=== PATIENT | female | born 1965 | race Caucasian/White ===

== ENCOUNTER → 2017-09-29 | Outpatient (CLI) | payer MEDICAID ==
--- NOTE | 2017-10-02 09:32 | BD ---
EXAMINATION TYPE: MG DEXA axial skeleton. DATE OF EXAM: 09/29/2017 COMPARISON: NONE CLINICAL HISTORY: Screening for osteoporosis. Postmenopausal female. Height: 66 Weight: 287.1 FRAX RISK QUESTIONS: Alcohol (3 or more units per day): no Family History (Parent hip fracture): no Glucocorticoids (More than 3mos): no (Ex: prednisone, prednisolone, methylprednisolone, dexamethasone, and hydrocortisone). History of Fracture in Adulthood: no Secondary Osteoporosis: 1. Type 1 Diabetes: no 2. Hyperthyroidism: no 3. Menopause before 45: yes 4. Malnutrition: no 5. Chronic liver disease: no Rheumatoid Arthritis: no Current Tobacco Use: no RISK FACTORS HISTORY OF: Hip Fracture (Right/Left): no Spine Fracture: no History of Wrist Fracture: no Surgery to Spine/Hip(right/left)/Wrist (right/left): bilateral carpal tunnel surg Family History of Osteoporosis: no Active: no Diet low in dairy products/other sources of calcium: yes Postmenopausal woman: hysterectomy 2006 Lost more than 2 inches in height since high school: no Frequent falls: no Poor Health: no Hyperparathyroidism: no Adrenal Insufficiency: no MEDICATIONS: high bp med, metformin, zocor, wellbutrin, baby aspirin Additional History: EXAM MEASUREMENTS: Bone mineral densitometry was performed using the [employer] System. Bone mineral density as measured about the Lumbar spine is: ----- L1-L4(G/cm2): 1.153 T Score Values are as follows: ----- L2: -0.3 ----- L3: -1.0 ----- L4: 0.1 ----- L1-L4: -0.2 Bone mineral density baseline Bone mineral density about the R hip (g/cm2): 1.003 Bone mineral density about the L hip (g/cm2): 0.951 T Score values are as follows: -----R Neck: -0.3 -----L Neck: -0.6 -----R Total: 0.0 -----L Total: 0.0 Bone mineral density baseline IMPRESSION: Normal (Values between +1 and -1 indicate normal bone mass). Consider repeating this study in 5 year s or sooner if there is some new clinical indication. NOTE: T-SCORE=SD OF THE YOUNG ADULT MEAN.
--- NOTE | 2017-10-02 11:51 | MM ---
Reason for exam: screening (asymptomatic). Last mammogram was performed 1 year and 3 months ago. History: Patient is postmenopausal. Took hormonal contraceptives for 2 years beginning at age 18. Physical Findings: A clinical breast exam by your physician is recommended on an annual basis and results should be correlated with mammographic findings. MG 3D Screening Mammo W/Cad Bilateral CC and MLO view(s) were taken. Prior study comparison: July 11, 2016, mammogram, performed at [place]. June 29, 2015, mammogram, performed at [place]. There are scattered fibroglandular densities. No suspicious abnormality. No significant changes when compared with prior studies. ASSESSMENT: Negative, BI-RAD 1 RECOMMENDATION: Routine screening mammogram of both breasts in 1 year.
== END | disposition home or self-care (01) ==
LOC: RADMAMWWP 15:43
PROVIDERS: ATTEND Internal Medicine Geriatric Medicine
DX: Z12.31 Encounter for screening mammogram for malignant neoplasm of breast (principal); M81.0 Age-related osteoporosis without current pathological fracture
CPT/HCPCS: 77063; 77067; 77080

== ENCOUNTER → 2017-10-30 | Outpatient (CLI) | payer MEDICAID ==
[2017-10-30 14:55] VITALS: RESP 15; TEMP 98.3; BMI 46.4
--- NOTE | 2017-10-30 15:38 | P.HPBAR ---
Bariatric H&P - History & Physicial H&P Date: 10/30/17 History & Physicial: Visit/CC: sleeve f/u (new patient moved from [place]) Patient initial contact: Initial weight: 180.076 kg Initial weight in pounds: 397.00 Height: 5 ft 6 in Initial BMI: 64.0 Last weight: Current weight: 130.499 kg Current weight in pounds: 287.70 Current BMI: 46.4 [place] body weight (based on NIH guidelines): 58.967 kg Excess body weight loss: 40.9% The patient is a 52 year-old F who presents for Bariatric Assessment. The patient presents today for bariatric follow-up. She underwent sleeve gastrectomy in 2012 in [facility]. The patient states she had some complaints of epigastric pain and some nausea. She lost approximately 100 pounds since her surgery. Past Medical History Past Medical History: Diabetes Mellitus, Hyperlipidemia, Hypertension, Sleep Apnea/CPAP/BIPAP Additional Past Medical History / Comment(s): Type 2 DM, Diverticulitis History of Any Multi-Drug Resistant Organisms: None Reported Past Surgical History: Bariatric Surgery, Hysterectomy, Orthopedic Surgery Additional Past Surgical History / Comment(s): Bilateral carpal tunnel, bilateral knee arthroscopy, Colonoscopy 2010 (benign polyps removed), Complete hysterectomy, bilateral ooperectomy, Vertical gastric sleeve 2012 Past Anesthesia/Blood Transfusion Reactions: No Reported Reaction Additional Past Anesthesia/Blood Transfusion Reaction / Comm: No hx of blood transfusions, sometimes in recovery a little longer d/t sleep apnea Past Psychological History: Anxiety, Depression Smoking Status: Never smoker Surgical - Exam Vital Signs Temp Resp 98.3 F 15 10/30/17 14:46 10/30/17 14:46 - General well developed, no distress - Eyes PERRL - ENT normal pinna - Neck no masses - Respiratory normal expansion - Cardiovascular Rhythm: regular - Abdomen Abdomen: soft, non tender Bariatric Assessment & Plan Plan: Status post sleeve yesterday. Patient will undergo EGD and esophagram. [facility] 1 [facility]. Bariatric Checklist Checklist: Plan: Checklist: EGD: 1. Hiatal hernia: 2. H. Pylori: HgbA1c: Vitamin D: Smoking: Never smoker Primary care physician referral: Jeff Psychiatry clearance: Cardiology clearance: Sleep study: Diet journal: VTE risk score: VTE risk level: Rehab needs at discharge:
[2017-10-30 16:54] VITALS: BP 193/104; PULSE 66
== END | disposition home or self-care (01) ==
LOC: BARWHC3 14:15
PROVIDERS: ATTEND Surgery
DX: Z09 Encounter for follow-up examination after completed treatment for conditions other than malignant neoplasm (principal); R10.13 Epigastric pain; R11.0 Nausea; E11.9 Type 2 diabetes mellitus without complications; E78.5 Hyperlipidemia, unspecified; I10 Essential (primary) hypertension; G47.33 Obstructive sleep apnea (adult) (pediatric); E66.9 Obesity, unspecified; F32.9 Major depressive disorder, single episode, unspecified; F41.9 Anxiety disorder, unspecified; K57.92 Diverticulitis of intestine, part unspecified, without perforation or abscess without bleeding; Z90.710 Acquired absence of both cervix and uterus; Z98.890 Other specified postprocedural states; Z68.42 Body mass index [BMI] 45.0-49.9, adult; Z99.89 Dependence on other enabling machines and devices; Z98.84 Bariatric surgery status
CPT/HCPCS: 99211

== ENCOUNTER → 2017-11-06 | Outpatient (CLI) | payer MEDICAID ==
--- NOTE | 2017-11-06 08:54 | FL ---
EXAMINATION: Cervical and Thoracic Esophagram DATE OF EXAM: 11/06/2017 CLINICAL INDICATION: 52-year-old female with history of sleeve gastrectomy in 2013 with epigastric pa in for one to 2 months. COMPARISON: None Total Fluoroscopy Time: 1 minute 42 seconds Clinical images: 35 FINDINGS: The swallowing mechanism is normal and hypopharyngeal anatomy is preserved. The cervical and thoracic portions have a normal course and caliber. The mucosa is normal and no pers istent filling defect is encountered. Secondary stripping waves are blunted with prolonged pooling of contrast in the esophagus with the pa tient is supine. Mild tertiary peristalsis is present with a few episodes of intraesophageal reflux. No hiatal hernia. Postsurgical changes of sleeve gastrectomy are noted. IMPRESSION: 1. Status post sleeve gastrectomy. 2. Blunted secondary stripping waves and mild tertiary peristalsis. This results in prolonged pooling of contrast in the esophagus especially when the patient is supine and intermittent intraesophageal reflux. 3. No hiatal hernia.
== END | disposition home or self-care (01) ==
LOC: RADFLWHC 07:56
PROVIDERS: ATTEND Surgery
DX: K21.9 Gastro-esophageal reflux disease without esophagitis (principal); Z98.84 Bariatric surgery status
CPT/HCPCS: 74220

== ENCOUNTER 2017-11-08 11:43 | Day surgery (SDC) | payer MEDICAID ==
[2017-11-06 09:26] VITALS: BMI 46.3
[~2017-11-08 11:43] MED LIST: LACTATED RINGERS 1,000 ML IV SCH
[2017-11-08 12:01] VITALS: RESP 18; TEMP 98
[2017-11-08] MEDS ORDERED: LACTATED RINGERS 1,000 ML IV ONE (12:01)
[2017-11-08] MEDS ORDERED: LIDOCAINE 1% 20 ML VIAL (10MG/ML) FOR IV START INTRADERMA ONE (12:11)
[2017-11-08 12:13] LABS: Glucose,Whole Blood 104 mg/dL (75-99)
[2017-11-08] MEDS ORDERED: PROPOFOL 10 MG/ML 20 ML VIAL IV ONE (12:42)
--- NOTE | 2017-11-08 12:43 | P.GSHP ---
History of Present Illness H&P Date: 11/08/17 Chief Complaint: GERD This a 52-year-old female who's had issues with GERD. Patient presents today for EGD. Past Medical History Past Medical History: Diabetes Mellitus, Hyperlipidemia, Hypertension, Sleep Apnea/CPAP/BIPAP Additional Past Medical History / Comment(s): Type 2 DM, Diverticulosis History of Any Multi-Drug Resistant Organisms: None Reported Past Surgical History: Bariatric Surgery, Hysterectomy, Orthopedic Surgery Additional Past Surgical History / Comment(s): Bilateral carpal tunnel, bilateral knee arthroscopy, Colonoscopy 2010 (benign polyps removed), Vertical gastric sleeve 2012 Past Anesthesia/Blood Transfusion Reactions: No Reported Reaction Additional Past Anesthesia/Blood Transfusion Reaction / Comment(s): No hx of blood transfusions, sometimes in recovery a little longer d/t sleep apnea Smoking Status: Former smoker - Past Family History Mother Family Medical History: Cancer Father Family Medical History: Deep Vein Thrombosis (DVT) Medications and Allergies Home Medications Medication Instructions Recorded Confirmed Type Aspirin [Adult Low Dose Aspirin EC] 81 mg PO HS 10/30/17 11/06/17 History Carvedilol [Coreg] 25 mg PO BID 10/30/17 11/06/17 History Enalapril [Vasotec] 20 mg PO BID 10/30/17 11/06/17 History Sertraline [Zoloft] 50 mg PO DAILY 10/30/17 11/06/17 History Simvastatin [Zocor] 20 mg PO HS 10/30/17 11/06/17 History amLODIPine [Norvasc] 5 mg PO DAILY 10/30/17 11/06/17 History buPROPion XL [Wellbutrin Xl] 150 mg PO DAILY 10/30/17 11/06/17 History metFORMIN HCL [Glucophage] 500 mg PO BID 10/30/17 11/06/17 History Allergies Allergy/AdvReac Type Severity Reaction Status Date / Time No Known Allergies Allergy Verified 11/06/17 09:21 Surgical - Exam Vital Signs Temp Pulse Resp BP Pulse Ox 98.0 F 80 18 160/89 98 11/08/17 12:00 11/08/17 12:00 11/08/17 12:00 11/08/17 12:00 11/08/17 12:00 - General well developed, no distress - Eyes PERRL - ENT normal pinna - Neck no masses - Respiratory normal expansion - Cardiovascular Rhythm: regular - Abdomen Abdomen: soft, non tender Results - Labs Abnormal Lab Results - Last 24 Hours (Table) 11/08/17 Range/Units 12:07 POC Glucose (mg/dL) 104 H (75-99) mg/dL Assessment and Plan Assessment: GERD. We'll perform EGD.
--- NOTE | 2017-11-08 13:00 | P.OP ---
Date of Procedure: 11/08/17 Preoperative Diagnosis: GERD Epigastric pain Postoperative Diagnosis: Gastric sleeve Mid gastric ulcer Procedure(s) Performed: EGD Anesthesia: MAC Surgeon: Rupert Velazco Pathology: other (Antrum, gastric ulcer) Condition: stable Disposition: PACU Description of Procedure: The patient's placed on the endoscopy table in the lateral position. She received IV sedation. The gastric was placed oropharynx and passed into the esophagus and into the stomach. Scope was placed through the pylorus into the first and second portion of the duodenum. There is known 70 ulceration ablation duodenum. The scope was then brought back the antrum this was mildly inflamed. A biopsies performed. The scope was brought back and the patient had a previous gastric sleeve. In the midportion sleeve there appeared to be a small punctate ulcer. There is evidence of a clot in the middle of the ulcer. The area around the ulcer was biopsied. I did not on his cause of the bleeding from biopsing the ulcer edge. The scope was withdrawn remainder stomach appeared normal. The GE junction was at 40 cm. The distal esophagus and proximal esophagus appeared normal. Scope was withdrawn for patient.
[2017-11-08 13:15] VITALS: BP 158/85; PULSE 62
== END 2017-11-08 13:41 | disposition home or self-care (01) ==
LOC: ORWHC2ENDO 11:43
PROVIDERS: ATTEND Surgery
DX: K29.50 Unspecified chronic gastritis without bleeding (principal); K25.9 Gastric ulcer, unspecified as acute or chronic, without hemorrhage or perforation; Z90.3 Acquired absence of stomach [part of]; Z98.84 Bariatric surgery status; E11.9 Type 2 diabetes mellitus without complications; E78.5 Hyperlipidemia, unspecified; I10 Essential (primary) hypertension; G47.33 Obstructive sleep apnea (adult) (pediatric); Z99.89 Dependence on other enabling machines and devices; Z79.84 Long term (current) use of oral hypoglycemic drugs; Z79.82 Long term (current) use of aspirin; Z79.899 Other long term (current) drug therapy; Z87.891 Personal history of nicotine dependence
CPT/HCPCS: 88305; 43239; J2704

== ENCOUNTER → 2017-11-27 | Outpatient (CLI) | payer MEDICAID ==
[2017-11-27 14:42] VITALS: BP 182/90; PULSE 63; RESP 16; TEMP 97.8; BMI 47.0
--- NOTE | 2017-11-27 15:11 | P.HPBAR ---
Bariatric H&P - History & Physicial H&P Date: 11/27/17 History & Physicial: Visit/CC: EGD follow-up Patient initial contact: Initial weight: 180.076 kg Initial weight in pounds: 397.00 Height: 5 ft 6 in Initial BMI: 64.0 Last weight: Current weight: 132.194 kg Current weight in pounds: 291.44 Current BMI: 47.0 [place] body weight (based on NIH guidelines): 58.967 kg Excess body weight loss: 39.5% The patient is a 52 year-old F who presents for Bariatric Assessment. Patient presents today for sleeve gastric fall. She underwent recent EGD is found to have a mid sleeve gastric ulcer. She states she feels better with omeprazole. Past Medical History Past Medical History: Diabetes Mellitus, Hyperlipidemia, Hypertension, Sleep Apnea/CPAP/BIPAP Additional Past Medical History / Comment(s): Type 2 DM, Diverticulitis History of Any Multi-Drug Resistant Organisms: None Reported Past Surgical History: Bariatric Surgery, Hysterectomy, Orthopedic Surgery Additional Past Surgical History / Comment(s): Bilateral carpal tunnel, bilateral knee arthroscopy, Colonoscopy 2010 (benign polyps removed), Complete hysterectomy, bilateral ooperectomy, Vertical gastric sleeve 2012 Past Anesthesia/Blood Transfusion Reactions: No Reported Reaction Additional Past Anesthesia/Blood Transfusion Reaction / Comm: No hx of blood transfusions, sometimes in recovery a little longer d/t sleep apnea Past Psychological History: Anxiety, Depression Smoking Status: Never smoker Surgical - Exam Vital Signs Temp Pulse Resp BP 97.8 F 63 16 182/90 11/27/17 14:39 11/27/17 14:39 11/27/17 14:39 11/27/17 14:39 - General well developed, no distress - Eyes PERRL - ENT normal pinna - Neck no masses - Respiratory normal expansion - Cardiovascular Rhythm: regular - Abdomen Abdomen: soft, non tender Bariatric Assessment & Plan Plan: Status post sleeve yesterday. Patient recently diagnosed with a gastric ulcer. She'll continue omeprazole and Carafate. She'll follow-up in 4 weeks. Bariatric Checklist Checklist: Plan: Checklist: EGD: 1. Hiatal hernia: 2. H. Pylori: HgbA1c: Vitamin D: Smoking: Never smoker Primary care physician referral: Jeff Psychiatry clearance: Cardiology clearance: Sleep study: Diet journal: VTE risk score: VTE risk level: Rehab needs at discharge:
== END | disposition home or self-care (01) ==
LOC: BARWHC3 14:27
PROVIDERS: ATTEND Surgery
DX: Z48.815 Encounter for surgical aftercare following surgery on the digestive system (principal); K25.9 Gastric ulcer, unspecified as acute or chronic, without hemorrhage or perforation; E11.9 Type 2 diabetes mellitus without complications; E78.5 Hyperlipidemia, unspecified; I10 Essential (primary) hypertension; F41.9 Anxiety disorder, unspecified; F32.9 Major depressive disorder, single episode, unspecified; G47.30 Sleep apnea, unspecified; Z99.89 Dependence on other enabling machines and devices; Z98.84 Bariatric surgery status; Z98.890 Other specified postprocedural states
CPT/HCPCS: 99211

== ENCOUNTER → 2018-01-15 | Outpatient (CLI) | payer MEDICAID ==
[2018-01-15 15:49] VITALS: TEMP 98; BMI 47.9
[2018-01-15 15:54] VITALS: BP 175/89; PULSE 70; RESP 16
--- NOTE | 2018-01-26 13:08 | P.HPBAR ---
Bariatric H&P - History & Physicial H&P Date: 01/15/18 History & Physicial: Visit/CC: SLEEVE FOLLOW-UP Patient initial contact: Initial weight: 180.076 kg Initial weight in pounds: 397.00 Height: 5 ft 6 in Initial BMI: 64.0 Last weight: Current weight: 134.717 kg Current weight in pounds: 297.00 Current BMI: 47.9 [place] body weight (based on NIH guidelines): 58.967 kg Excess body weight loss: 37.4% The patient is a 52 year-old F who presents for Bariatric Assessment.the patient presents today for gastric sleeve follow-up. She has some mild complaints of GERD. She is still morbidly obese. Her BMI is 48. Past Medical History Past Medical History: Diabetes Mellitus, Hyperlipidemia, Hypertension, Sleep Apnea/CPAP/BIPAP Additional Past Medical History / Comment(s): Type 2 DM, Diverticulitis History of Any Multi-Drug Resistant Organisms: None Reported Past Surgical History: Bariatric Surgery, Hysterectomy, Orthopedic Surgery Additional Past Surgical History / Comment(s): Bilateral carpal tunnel, bilateral knee arthroscopy, Colonoscopy 2010 (benign polyps removed), Complete hysterectomy, bilateral ooperectomy, Vertical gastric sleeve 2012 Past Anesthesia/Blood Transfusion Reactions: No Reported Reaction Additional Past Anesthesia/Blood Transfusion Reaction / Comm: No hx of blood transfusions, sometimes in recovery a little longer d/t sleep apnea Past Psychological History: Anxiety, Depression Smoking Status: Never smoker Surgical - Exam Vital Signs Temp Pulse Resp BP 98.0 F 70 16 175/89 01/15/18 15:47 01/15/18 15:47 01/15/18 15:47 01/15/18 15:47 - General well developed, no distress - Abdomen Abdomen: soft, non tender Bariatric Assessment & Plan Plan: status post sleeve gastrectomy. Patient's will meet with the dietitian. Her GERD symptoms are minimal only observed. Bariatric Checklist Checklist: Plan: Checklist: EGD: 1. Hiatal hernia: 2. H. Pylori: HgbA1c: Vitamin D: Smoking: Never smoker Primary care physician referral: Jeff Psychiatry clearance: Cardiology clearance: Sleep study: Diet journal: VTE risk score: VTE risk level: Rehab needs at discharge:
== END | disposition home or self-care (01) ==
LOC: BARWHC3 15:33
PROVIDERS: ATTEND Surgery
DX: Z48.815 Encounter for surgical aftercare following surgery on the digestive system (principal); K21.9 Gastro-esophageal reflux disease without esophagitis; Z98.84 Bariatric surgery status
CPT/HCPCS: 99211

== ENCOUNTER → 2018-01-19 | Outpatient (CLI) | payer MEDICAID ==
[2018-01-19 11:04] VITALS: BMI 47.7
== END | disposition home or self-care (01) ==
LOC: MNTWWP 08:46
PROVIDERS: ATTEND Surgery
DX: E66.01 Morbid (severe) obesity due to excess calories (principal)
CPT/HCPCS: 97802

== ENCOUNTER → 2019-05-01 | Outpatient (CLI) | payer MEDICAID ==
[2019-05-01 14:39] VITALS: BP 167/107; PULSE 79; RESP 16; TEMP 98; BMI 51.1
--- NOTE | 2019-05-01 15:05 | P.HPBAR ---
Bariatric H&P - History & Physicial H&P Date: 05/01/19 History & Physicial: Visit/CC: sleeve follow-up Patient initial contact: Initial weight: 180.076 kg Initial weight in pounds: 397.00 Height: 5 ft 6 in Initial BMI: 64.0 Last weight: Current weight: 143.789 kg Current weight in pounds: 317.00 Current BMI: 51.1 [place] body weight (based on NIH guidelines): 58.967 kg Excess body weight loss: 29.9% The patient is a 53 year-old F who presents for Bariatric Assessment. HPI: She had her sleeve in [place], January 30, 2013. Highest weight was 401 pounds. Lowest 247 pounds. Now she comes in 317 pounds. She reports divorce and mother with brain cancer. She was on insuling and was off her medications after surgery. She was on Lasix for congestive heart failure and came off with her weight loss. She has sleep apnea. She was seeing Dr. Velazco and now is looking into the gastric bypass. She had an ulcer from her sleeve from a recent EGD and was not re-checked. He abdominal pain epigastric pain comes and goes. ABDOMEN: LABS: Reveiwed ASSESSMENT: 1. Morbid obesity PLAN: 1. Needs repeat EGD history ulcers 2. Repeat Labs 3. Follow up in 1 month Past Medical History Past Medical History: Diabetes Mellitus, Hyperlipidemia, Hypertension, Sleep Apnea/CPAP/BIPAP Additional Past Medical History / Comment(s): Type 2 DM, Diverticulitis History of Any Multi-Drug Resistant Organisms: None Reported Past Surgical History: Bariatric Surgery, Hysterectomy, Orthopedic Surgery Additional Past Surgical History / Comment(s): Bilateral carpal tunnel, bilateral knee arthroscopy, Colonoscopy 2010 (benign polyps removed), Complete hysterectomy, bilateral ooperectomy, Vertical gastric sleeve 2012 Past Anesthesia/Blood Transfusion Reactions: No Reported Reaction Additional Past Anesthesia/Blood Transfusion Reaction / Comm: No hx of blood transfusions, sometimes in recovery a little longer d/t sleep apnea Past Psychological History: Anxiety, Depression Smoking Status: Never smoker Surgical - Exam Vital Signs Temp Pulse Resp BP 98 F 79 16 167/107 05/01/19 14:34 05/01/19 14:34 05/01/19 14:34 05/01/19 14:34 Bariatric Checklist Checklist: Plan: Checklist: EGD: 1. Hiatal hernia: 2. H. Pylori: HgbA1c: Vitamin D: Smoking: Never smoker Primary care physician referral: Jeff Psychiatry clearance: Cardiology clearance: Sleep study: Diet journal: VTE risk score: VTE risk level: Rehab needs at discharge:
[2019-05-01 16:13] LABS: INR 0.9 (<1.2); Partial Thromboplastin Time 23.6 sec (22.0-30.0); Prothrombin Time 9.5 sec (9.0-12.0)
[2019-05-01 18:49] LABS: HGB 13.2 gm/dL (11.4-16.0); MCH 31.8 pg (25.0-35.0); MCHC 35.8 g/dL (31.0-37.0); MCV 88.8 fL (80.0-100.0); Mean Platelet Volume 6.8; Platelet Count 226 k/uL (150-450); RBC 4.16 m/uL (3.80-5.40); RDW 14.9 % (11.5-15.5); WBC 6.1 k/uL (3.8-10.6)
[2019-05-02 00:53] LABS: Iron Saturation 13.51 (12.00-45.00)
[2019-05-02 00:56] LABS: African American GFR (CKD) 96.9 (60.0-200.0); Albumin 4.4 g/dL (3.80-4.90); Albumin/Globulin Ratio 1.76 (1.60-3.17); Anion Gap 11.5 mmol/L (4.00-12.00); BUN/Creat Ratio 16.25 Ratio (12.00-20.00); Calcium 9.6 mg/dL (8.7-10.3); Carbon Dioxide 23.5 mmol/L (21.6-31.8); Globulin 2.5 g/dL (1.6-3.3); LDL Cholesterol,Calculated 80.2 mg/dL (0.0-131.0); Magnesium 1.8 mg/dL (1.5-2.4); Phosphorus 2.6 mg/dL (2.4-5.1); Potassium 4.4 mmol/L (3.5-5.5); Total Bilirubin 0.2 mg/dL (0.3-1.2); Total Protein 6.9 g/dL (6.2-8.2); VLDL Calculation 42.8 mg/dL (5.00-40.00)
[2019-05-02 01:02] LABS: Vitamin D 25 Hydroxy 22.3 ng/mL (30.0-100.0)
[2019-05-02 01:21] LABS: Hemoglobin A1C 7.1 % (4.0-6.0)
[2019-05-02 14:15] LABS: Zinc, Serum 70 ug/dL (60-130)
[2019-05-03 06:18] LABS: Vitamin A 60 ug/dL (38-106)
[2019-05-03 06:27] LABS: Vit B1(Thiamine) 73 ug/L (38-122)
== END ==
LOC: BARWHC3 14:15
PROVIDERS: ATTEND Surgery Plastic and Reconstructive Surgery
DX: E66.01 Morbid (severe) obesity due to excess calories (principal); E21.1 Secondary hyperparathyroidism, not elsewhere classified; E89.1 Postprocedural hypoinsulinemia; D50.9 Iron deficiency anemia, unspecified; E44.0 Moderate protein-calorie malnutrition; E55.9 Vitamin D deficiency, unspecified; K74.1 Hepatic sclerosis; N19 Unspecified kidney failure; K50.90 Crohn's disease, unspecified, without complications; Z98.84 Bariatric surgery status; Z68.43 Body mass index [BMI] 50.0-59.9, adult
CPT/HCPCS: 36415; 80053; 80061; 82306; 82525; 82607; 82728; 82746; 83036; 83540; 83550; 83735; 83970; 84100; 84134; 84255; 84425; 84443; 84590; 84630; 85027; 85610; 85730; 99211

== ENCOUNTER → 2019-05-22 | Outpatient (CLI) | payer MEDICAID ==
[2019-05-22 10:37] VITALS: BMI 51.6
== END | disposition home or self-care (01) ==
LOC: BARWHC3 08:51
PROVIDERS: ATTEND Surgery Plastic and Reconstructive Surgery
DX: E66.01 Morbid (severe) obesity due to excess calories (principal); Z68.43 Body mass index [BMI] 50.0-59.9, adult
CPT/HCPCS: 97803

== ENCOUNTER 2019-06-03 09:37 | Day surgery (SDC) | payer MEDICAID ==
[2019-05-30 16:04] VITALS: BMI 51.1
--- NOTE | 2019-06-02 22:55 | P.GSHP ---
History of Present Illness H&P Date: 06/03/19 CHIEF COMPLAINT: GERD HISTORY OF PRESENT ILLNESS: The patient is a 53-year-old female who presents reports gastroesophageal reflux disease. Upper endoscopy was offered for further evaluation and management. PAST MEDICAL HISTORY: Please see list. PAST SURGICAL HISTORY: Please see list. MEDICATIONS: Please see list. ALLERGIES: Please see list. SOCIAL HISTORY: No illicit drug use FAMILY HISTORY: No reports of Crohn disease or ulcerative colitis. REVIEW OF ORGAN SYSTEMS: CONSTITUTIONAL: No reports of fevers or chills. GI: Denies any blood in stools or constipation. PHYSICAL EXAM: VITAL SIGNS: Stable GENERAL: Well-developed and pleasant in no acute distress. HEENT: No scleral icterus. Extraocular movements grossly intact. Moist buccal mucosa. NECK: Supple without lymphadenopathy. CHEST: Unlabored respirations. Equal bilateral excursions. CARDIOVASCULAR: Regular rate and rhythm. Distal 2+ pulses. ABDOMEN: Soft, nondistended. MUSCULOSKELETAL: No clubbing, cyanosis, or edema. ASSESSMENT: 1. Gastroesophageal reflux disease PLAN: 1. Recommend proceeding with an upper endoscopy Past Medical History Past Medical History: Heart Failure, Diabetes Mellitus, Hyperlipidemia, Hypertension, Sleep Apnea/CPAP/BIPAP Additional Past Medical History / Comment(s): Type 2 DM, Diverticulitis. "Hx CHF when heavier." Hx stomach ulcer. Uses CPAP. History of Any Multi-Drug Resistant Organisms: None Reported Past Surgical History: Bariatric Surgery, Hysterectomy, Orthopedic Surgery Additional Past Surgical History / Comment(s): Bilateral carpal tunnel, bilat arthroscopy, Colonoscopy 2010 (benign polyps removed), Total Complete hysterectomy, Vertical gastric sleeve 2012. EGD Past Anesthesia/Blood Transfusion Reactions: Previous Problems w/ Anesthesia Additional Past Anesthesia/Blood Transfusion Reaction / Comment(s): No hx of blood transfusions, sometimes in recovery a little longer d/t sleep apnea Smoking Status: Former smoker - Past Family History Mother Family Medical History: Cancer Additional Family Medical History / Comment(s): Gleoblastoma Multiform 2015 Father Family Medical History: Deep Vein Thrombosis (DVT) Additional Family Medical History / Comment(s): AAA repair Medications and Allergies Home Medications Medication Instructions Recorded Confirmed Type Aspirin [Adult Low Dose Aspirin EC] 81 mg PO HS 10/30/17 05/30/19 History Carvedilol [Coreg] 25 mg PO BID 10/30/17 05/30/19 History Enalapril [Vasotec] 20 mg PO BID 10/30/17 05/30/19 History Sertraline [Zoloft] 25 mg PO Q48H 10/30/17 05/30/19 History Simvastatin [Zocor] 20 mg PO HS 10/30/17 05/30/19 History amLODIPine [Norvasc] 5 mg PO DAILY 10/30/17 05/30/19 History buPROPion XL [Wellbutrin Xl] 150 mg PO DAILY 10/30/17 05/30/19 History metFORMIN HCL [Glucophage] 1,000 mg PO BID 10/30/17 05/30/19 History Allergies Allergy/AdvReac Type Severity Reaction Status Date / Time No Known Allergies Allergy Verified 05/30/19 15:47
[2019-06-03 10:12] VITALS: TEMP 97.2
[2019-06-03 10:13] LABS: Glucose,Whole Blood 131 mg/dL (75-99)
[2019-06-03] MEDS ORDERED: LIDOCAINE 1% INJ 10MG/ML (20 ML MDV) ONE (13:33)
[2019-06-03] MEDS ORDERED: PROPOFOL 10 MG/ML 20 ML VIAL IV ONE (13:33)
--- NOTE | 2019-06-03 13:46 | P.PCN ---
Date of Procedure: 06/03/19 Description of Procedure: PREOPERATIVE DIAGNOSIS: Status post sleeve gastrectomy. History of gastric ulcers Epigastric abdominal pain. POSTOPERATIVE DIAGNOSIS: Status post sleeve gastrectomy. History of gastric ulcers Epigastric abdominal pain. Chronic superficial gastritis. OPERATION: Esophagogastroduodenoscopy with cold forceps biopsies along the antrum. SURGEON: Josette Pollard MD ANESTHESIA: MAC. INDICATIONS: The patient is a 53-year-old female who presents with a history of sleeve gastrectomy with gastric ulcers. Benefits and risks of the procedure were described. Informed consent was obtained. DESCRIPTION: The patient was brought into the endoscopy suite and laid in the left lateral decubitus position. An Olympus gastroscope was passed along the posterior oropharynx down to the distal esophagus where the squamocolumnar junction was at 40 centimeters from the incisors without erosive esophagitis. The stomach was entered where no hiatal hernia was identified. The sleeve reservoir narrowed at the angularis incisura. Chronic gastritis albeit mild was found along the antrum with cold biopsies obtained. The first through third portion of the duodenum was examined and unremarkable. The scope was retroflexed along the antrum. The stomach was desufflated. The patient tolerated the procedure well. FINDINGS: No acute ulceration found along her sleeve. Mild corkscrewing of sleeve gastrectomy. Encroachment along angularis incisura Adequate gastric reservoir with tapering along angularis incisura No LA grade A erosive esophagitis. No active duodenitis. Chronic gastritis. RECOMMENDATIONS: Upper endoscopy as needed. Plan - Discharge Summary Discharge Rx Participant: No New Discharge Prescriptions: No Action buPROPion XL [Wellbutrin Xl] 150 mg PO DAILY Sertraline [Zoloft] 25 mg PO Q48H metFORMIN HCL [Glucophage] 1,000 mg PO BID Aspirin [Adult Low Dose Aspirin EC] 81 mg PO HS Simvastatin [Zocor] 20 mg PO HS Carvedilol [Coreg] 25 mg PO BID amLODIPine [Norvasc] 5 mg PO DAILY Enalapril [Vasotec] 20 mg PO BID Discharge Medication List Aspirin [Adult Low Dose Aspirin EC] 81 mg PO HS 10/30/17 [History] Carvedilol [Coreg] 25 mg PO BID 10/30/17 [History] Enalapril [Vasotec] 20 mg PO BID 10/30/17 [History] Sertraline [Zoloft] 25 mg PO Q48H 10/30/17 [History] Simvastatin [Zocor] 20 mg PO HS 10/30/17 [History] amLODIPine [Norvasc] 5 mg PO DAILY 10/30/17 [History] buPROPion XL [Wellbutrin Xl] 150 mg PO DAILY 10/30/17 [History] metFORMIN HCL [Glucophage] 1,000 mg PO BID 10/30/17 [History] Follow up Appointment(s)/Referral(s): [facility] [NON-STAFF] - 06/19/19 Patient Instructions/Handouts: Gastritis (DC), Diet for Stomach Ulcers and Gastritis (ED) Discharge Disposition: HOME SELF-CARE
[2019-06-03 14:09] VITALS: BP 132/80; PULSE 63; RESP 20
== END 2019-06-03 14:25 | disposition home or self-care (01) ==
LOC: ORWHC2ENDO 09:37
PROVIDERS: ATTEND Surgery Plastic and Reconstructive Surgery
DX: K29.30 Chronic superficial gastritis without bleeding (principal); Z98.84 Bariatric surgery status; Z87.11 Personal history of peptic ulcer disease; Z79.84 Long term (current) use of oral hypoglycemic drugs; Z79.82 Long term (current) use of aspirin; E11.9 Type 2 diabetes mellitus without complications; E78.5 Hyperlipidemia, unspecified; Z99.89 Dependence on other enabling machines and devices; Z87.891 Personal history of nicotine dependence; Z79.899 Other long term (current) drug therapy; E66.01 Morbid (severe) obesity due to excess calories; Z68.43 Body mass index [BMI] 50.0-59.9, adult; G47.33 Obstructive sleep apnea (adult) (pediatric); Z80.8 Family history of malignant neoplasm of other organs or systems
CPT/HCPCS: 88305; 43239; J2001; J2704

== ENCOUNTER → 2019-06-19 | Outpatient (CLI) | payer MEDICAID ==
[2019-06-19 14:12] VITALS: BP 155/89; PULSE 82; RESP 16; TEMP 98.6; BMI 51.1
--- NOTE | 2019-06-19 15:18 | P.PN ---
Subjective Progress Note Date: 06/19/19 06/19/19 She is keeping her food diary journal. Her protein intake is under 60 grams daily. Upper endoscopy reviewed with corkscrewing of the sleeve PLAN: 1. Increase protein to 75 grams 2. Follow up 1 month. 3. Labs reviewed. DATE OF SERVICE: 05/01/2019 REASON FOR CONSULTATION: Initial bariatric evaluation. HISTORY OF PRESENT ILLNESS: Francia Sapp is a 53-year-old female who comes with lifelong morbid obesity. She had her sleeve gastrectomy done in the [facility], January 30, 2013. She is 6 years out. Highest weight was 401 pounds. Lowest was 247 pounds. Now she comes in 317 pounds. She reports being and her mother had brain cancer. She was on insulin prior to her sleeve and was off her medications after surgery. She was on Lasix for congestive heart failure and came off with her weight loss. She has sleep apnea. She was seeing Dr. Velazco and now is looking into the gastric bypass. She had an ulcer from her sleeve found on a recent EGD and was not re-checked. She has epigastric pain that comes and goes. She presents to me for the first time in consultation for abdominal pain and complications from her sleeve gastrectomy. At height of 5 feet 6 inches, her ideal body weight is 154 pounds. Her highest weight was 401 pounds. Her BMI was 64.9. She comes in 316 pounds. Her body mass index is 51.2. Her lifetime weight loss is 85 pounds. She has gained 20 pounds in 1.5 months. Her percent excess weight loss is 34%. PAST MEDICAL HISTORY: 1. Morbid obesity due to excess calories 2. Body mass index of 51.2 3. Congestive heart failure 4. Depressive disorder 5. Hyperlipidemia 6. Hypertensive heart disesae 7. Diabetes type 2, non-insulin dependent 8. Obstructive sleep apnea 9. Diverticulitis 10. Gastric ulcers 11. Osteoarthritis lower back 12. Anxiety PAST SURGICAL HISTORY: 1. Sleeve gastrectomy 2. Hysterectomy 3. Bilateral carpal tunnel release 4. Bilateral knee arthroscopy 5. Bilateral oophorectomy HOME MEDICATIONS: Home Medications Medication Instructions Recorded Confirmed Aspirin [Adult Low Dose Aspirin EC] 81 mg PO HS 10/30/17 06/03/19 Carvedilol [Coreg] 25 mg PO BID 10/30/17 06/03/19 Enalapril [Vasotec] 20 mg PO BID 10/30/17 06/03/19 Sertraline [Zoloft] 25 mg PO Q48H 10/30/17 06/03/19 Simvastatin [Zocor] 20 mg PO HS 10/30/17 06/03/19 amLODIPine [Norvasc] 5 mg PO DAILY 10/30/17 06/03/19 buPROPion XL [Wellbutrin Xl] 150 mg PO DAILY 10/30/17 06/03/19 metFORMIN HCL [Glucophage] 1,000 mg PO BID 10/30/17 06/03/19 ALLERGIES: Allergies Allergy/AdvReac Type Severity Reaction Status Date / Time No Known Allergies Allergy Verified 06/03/19 10:08 SOCIAL HISTORY: No past tobacco use. FAMILY HISTORY: No family history of ulcerative colitis disease or Crohn's disease. No lupus in the family. No reports of stomach or esophageal cancer. Brain cancer in mother. REVIEW OF ORGAN SYSTEMS: CONSTITUTIONAL: At height of 5 feet 6 inches, her ideal body weight is 154 pounds. Her highest weight was 401 pounds. Her BMI was 64.9. HEENT: Denies any active troubles with vision or hearing. ENDOCRINE: Has diabetes. No hypothyroidism. CARDIOVASCULAR: Past reports of palpitations or heart attacks or chest pain. Has CHF. RESPIRATORY: Has daytime somnolence. No asthma. GASTROINTESTINAL: Denies any bright red blood per rectum. No diarrhea. No constipation. MUSCULOSKELETAL: Has lower back pain and joint pain. NEURO: No headaches. No seizure disorders. PSYCH: Has depression. No suicidal ideation. Has anxiety. RHEUMATOLOGIC: No lupus. No rheumatoid arthritis. HEMATOLOGIC: Denies any abnormal bleeding or bruising. No personal history of DVTs. SKIN: No rash. No skin cancer. PHYSICAL EXAM: VITAL SIGNS: Height 5 foot 6 inches, weight 316 pounds. BMI 51.2 Vital Signs Temp 98 F 05/01/19 14:34 Pulse 79 05/01/19 14:34 Resp 16 05/01/19 14:34 BP 167/107 05/01/19 14:34 Pulse Ox GENERAL: Well-developed in no acute distress. HEENT: No scleral icterus. Extraocular movements grossly intact. Hears conversational speech. No nasal drainage. NECK: Supple without lymphadenopathy. CHEST: Nonlabored respirations with equal bilateral excursions. CARDIOVASCULAR: Regular rate and regular rhythm. Distal 2+ pulses. ABDOMEN: Obese, soft, nontender, nondistended. MUSCULOSKELETAL: No clubbing, cyanosis. Gross strength 5/5 distal lower extremities. NEURO: No focal or lateralizing signs. Cranial nerves 2 through 12 grossly within normal limits. PSYCH: Appropriate affect. Alert and oriented to person, place and time. SKIN: Good skin turgor. Well perfused. ASSESSMENT: 1. Morbid obesity due to excess calories 2. Body mass index of 51.2 3. Congestive heart failure 4. Depressive disorder 5. Hyperlipidemia 6. Hypertensive heart disesae 7. Diabetes type 2, non-insulin dependent 8. Obstructive sleep apnea 9. Diverticulitis 10. Gastric ulcers 11. Osteoarthritis lower back 12. Anxiety 13. Gastric ulcers PLAN: 1. Surgical options including gastric bypass were described in detail. Alternatives such as gastric balloon including duodenal switch were described but not feasible for the gastric balloon. She is looking into the gastric bypass. 2. The [place] bariatric surgical collaborative data and outcomes calculator were described with surgical options. She is high risk for surgical complications as a revision. 3. Recommend a bariatric metabolic panel to evaluate for micro- including macronutrient deficiencies. 4. For history of daytime somnolence, recommend evaluation and treatment for sleep apnea. 5. Dietary surveillance and counseling was reviewed. Increased protein intake over 65 grams daily advised. 6. Will need cardiac risk assessment. 7. Recommend medical risk assessment. 8. Psych assessment per insurance guidelines. 9. Recommend upper endoscopy. 10. Recommend 12-lead EKG. 11. Recommend esophagram 12. Follow up in 1 month Laboratory Last Values WBC 6.1 k/uL (3.8-10.6) 05/01/19 15:30 RBC 4.16 m/uL (3.80-5.40) 05/01/19 15:30 Hgb 13.2 gm/dL (11.4-16.0) 05/01/19 15:30 Hct 37.0 % (34.0-46.0) 05/01/19 15:30 MCV 88.8 fL (80.0-100.0) 05/01/19 15:30 MCH 31.8 pg (25.0-35.0) 05/01/19 15:30 MCHC 35.8 g/dL (31.0-37.0) 05/01/19 15:30 RDW 14.9 % (11.5-15.5) 05/01/19 15:30 Plt Count 226 k/uL (150-450) 05/01/19 15:30 PT 9.5 sec (9.0-12.0) 05/01/19 15:30 INR 0.9 (<1.2) 05/01/19 15:30 APTT 23.6 sec (22.0-30.0) 05/01/19 15:30 Sodium 143 mmol/L (135-145) 05/01/19 15:30 Potassium 4.4 mmol/L (3.5-5.5) 05/01/19 15:30 Chloride 108 mmol/L (96-109) 05/01/19 15:30 Carbon Dioxide 23.5 mmol/L (21.6-31.8) 05/01/19 15:30 Anion Gap 11.50 mmol/L (4.00-12.00) 05/01/19 15:30 BUN 13.0 mg/dL (9.0-27.0) 05/01/19 15:30 Creatinine 0.8 mg/dL (0.6-1.5) 05/01/19 15:30 Est GFR (CKD-EPI)AfAm 96.9 (60.0-200.0) 05/01/19 15:30 Est GFR (CKD-EPI)NonAf 83.6 (60.0-200.0) 05/01/19 15:30 BUN/Creatinine Ratio 16.25 Ratio (12.00-20.00) 05/01/19 15:30 Glucose 146 mg/dL (70-110) H 05/01/19 15:[address] Glu mg/dL 157 05/01/19 15:30 Hemoglobin A1c 7.1 % (4.0-6.0) H 05/01/19 15:30 Calcium 9.6 mg/dL (8.7-10.3) 05/01/19 15:30 Phosphorus 2.6 mg/dL (2.4-5.1) 05/01/19 15:30 Magnesium 1.8 mg/dL (1.5-2.4) 05/01/19 15:30 Iron 50 ug/dL (50-170) 05/01/19 15:30 TIBC 370 ug/dL (228-460) 05/01/19 15:30 Iron Saturation 13.51 (12.00-45.00) 05/01/19 15:30 Ferritin 10.4 ng/mL (10.0-291.0) 05/01/19 15:30 Total Bilirubin 0.2 mg/dL (0.3-1.2) L 05/01/19 15:30 AST 27 U/L (13-35) 05/01/19 15:30 ALT 22 U/L (8-44) 05/01/19 15:30 Alkaline Phosphatase 80 U/L (41-126) 05/01/19 15:30 Total Protein 6.9 g/dL (6.2-8.2) 05/01/19 15:30 Albumin 4.40 g/dL (3.80-4.90) 05/01/19 15:30 Globulin 2.5 g/dL (1.6-3.3) 05/01/19 15:30 Albumin/Globulin Ratio 1.76 g/dL (1.60-3.17) 05/01/19 15:30 Prealbumin 23.0 mg/dL (18.0-42.0) 05/01/19 15:30 Triglycerides 214.0 mg/dL (0.0-149.0) H 05/01/19 15:30 Cholesterol 205 mg/dL (0-200) H 05/01/19 15:30 LDL Cholesterol, Calc 80.2 mg/dL (0.0-131.0) 05/01/19 15:30 VLDL Cholesterol, Calc 42.80 mg/dL (5.00-40.00) H 05/01/19 15:30 HDL Cholesterol 82.0 mg/dL (40.0-60.0) H 05/01/19 15:30 Cholesterol/HDL Ratio 2.50 05/01/19 15:30 Vitamin A 60 ug/dL (38-106) 05/01/19 15:30 Vitamin B1 73 ug/L (38-122) 05/01/19 15:30 Vitamin B12 383.0 pg/mL (200.0-944.0) 05/01/19 15:30 Vitamin D 25-Hydroxy 22.3 ng/mL (30.0-100.0) L 05/01/19 15:30 Folate 13.0 ng/mL 05/01/19 15:30 TSH 2.480 uIU/mL (0.350-5.500) 05/01/19 15:30 PTH Intact 76.6 pg/mL (14.0-72.0) H 05/01/19 15:30 Copper 1555 ug/L (810-1990) 05/01/19 15:30 Selenium 119 mcg/L (63-160) 05/01/19 15:30 Zinc 70 ug/dL (60-130) 05/01/19 15:30 Hgb A1c 7.1 Vitamin D deficiency PTH is elevated Objective - Vital Signs Vital signs: Vital Signs Temp 98.6 F 06/19/19 14:08 Pulse 82 06/19/19 14:08 Resp 16 06/19/19 14:08 BP 155/89 06/19/19 14:08 Pulse Ox Intake & Output 06/18/19 06/19/19 06/19/19 18:59 06:59 18:59 Weight 143.789 kg
== END ==
LOC: BARWHC3 13:48
PROVIDERS: ATTEND Surgery Plastic and Reconstructive Surgery
DX: E66.01 Morbid (severe) obesity due to excess calories (principal); I50.9 Heart failure, unspecified; E78.5 Hyperlipidemia, unspecified; I11.9 Hypertensive heart disease without heart failure; E11.9 Type 2 diabetes mellitus without complications; G47.33 Obstructive sleep apnea (adult) (pediatric); K57.92 Diverticulitis of intestine, part unspecified, without perforation or abscess without bleeding; K25.9 Gastric ulcer, unspecified as acute or chronic, without hemorrhage or perforation; M19.90 Unspecified osteoarthritis, unspecified site; F41.8 Other specified anxiety disorders; Z68.43 Body mass index [BMI] 50.0-59.9, adult; Z79.84 Long term (current) use of oral hypoglycemic drugs; Z79.899 Other long term (current) drug therapy; Z79.82 Long term (current) use of aspirin
CPT/HCPCS: 99211

== ENCOUNTER → 2019-07-24 | Outpatient (CLI) | payer MEDICAID ==
[2019-07-24 16:38] VITALS: BP 163/94; PULSE 81; RESP 16; TEMP 98.2; BMI 51.3
--- NOTE | 2019-07-24 17:09 | P.PN ---
Subjective Progress Note Date: 07/24/19 DATE OF SERVICE: 07/24/2019 CHIEF COMPLAINT: Morbid obesity HISTORY OF PRESENT ILLNESS: Francia Sapp is a 54-year-old female who comes in with sleeve gastrectomy done in the state of [place], January 30, 2013. She is 6 years out. She has trouble with diabetes. She did not come in with food diary journal. Her protein is increased to 65 grams daily. Her carbs is 150 g and over. She reports trouble with her sleeve. She does not prepare her own meals. She is about to get . At height of 5 feet 6 inches, her ideal body weight is 154 pounds. Her highest weight was 401 pounds. Her BMI was 64.9. She comes in 317 pounds from 316 pounds, 1 month ago. She has gained 1 pound in 1 month. Her body mass index is 51.3. Her lifetime weight loss is 84 pounds. Her percent excess weight loss is 34%. PHYSICAL EXAM: VITAL SIGNS: Height 5 foot 6 inches, weight 317 pounds. BMI 51.3 Vital Signs Temp 98.2 F 07/24/19 16:36 Pulse 81 07/24/19 16:36 Resp 16 07/24/19 16:36 BP 163/94 07/24/19 16:36 Pulse Ox GENERAL: Well-developed in no acute distress. HEENT: No scleral icterus. Extraocular movements grossly intact. Hears conversational speech. No nasal drainage. NECK: Supple without lymphadenopathy. CHEST: Nonlabored respirations with equal bilateral excursions. CARDIOVASCULAR: Regular rate and regular rhythm. Distal 2+ pulses. ABDOMEN: Obese, soft, nontender, nondistended. MUSCULOSKELETAL: No clubbing, cyanosis. Gross strength 5/5 distal lower extremities. NEURO: No focal or lateralizing signs. Cranial nerves 2 through 12 grossly within normal limits. PSYCH: Appropriate affect. Alert and oriented to person, place and time. SKIN: Good skin turgor. Well perfused. ASSESSMENT: 1. Morbid obesity due to excess calories 2. Body mass index 51.3 3. Congestive heart failure 4. Depressive disorder 5. Hyperlipidemia 6. Hypertensive heart disesae 7. Diabetes type 2, non-insulin dependent 8. Obstructive sleep apnea 9. Diverticulitis 10. Gastric ulcers 11. Osteoarthritis lower back 12. Anxiety 13. Gastric ulcers 14. Dietary surveillance and counseling. 15. Complications of sleeve gastrectomy PLAN: 1. Recommend increase protein over 75 grams daily. 2. Recommend decrease carb intake less than 100 to 150 grams. 3. Continue with medically supervised weight loss. Objective - Vital Signs Vital signs: Vital Signs Temp 98.2 F 07/24/19 16:36 Pulse 81 07/24/19 16:36 Resp 16 07/24/19 16:36 BP 163/94 07/24/19 16:36 Pulse Ox Intake & Output 07/23/19 07/24/19 07/24/19 18:59 06:59 18:59 Weight 144.242 kg
== END | disposition home or self-care (01) ==
LOC: BARWHC3 15:44
PROVIDERS: ATTEND Surgery Plastic and Reconstructive Surgery
DX: E66.01 Morbid (severe) obesity due to excess calories (principal); I50.9 Heart failure, unspecified; F32.9 Major depressive disorder, single episode, unspecified; E78.5 Hyperlipidemia, unspecified; I11.0 Hypertensive heart disease with heart failure; E11.9 Type 2 diabetes mellitus without complications; G47.33 Obstructive sleep apnea (adult) (pediatric); K57.92 Diverticulitis of intestine, part unspecified, without perforation or abscess without bleeding; K25.9 Gastric ulcer, unspecified as acute or chronic, without hemorrhage or perforation; M19.90 Unspecified osteoarthritis, unspecified site; Z71.3 Dietary counseling and surveillance; K95.89 Other complications of other bariatric procedure; Z68.43 Body mass index [BMI] 50.0-59.9, adult
CPT/HCPCS: 99211

== ENCOUNTER → 2019-11-21 | Outpatient (CLI) | payer MEDICAID ==
--- NOTE | 2019-11-21 14:22 | US ---
EXAMINATION TYPE: US kidneys/renal and bladder DATE OF EXAM: 11/21/2019 COMPARISON: NONE CLINICAL HISTORY: R30.0 Dysuria, UTI N39.0. 3 UTI's in 3 months, microscopic hematuria, right flank p ain EXAM MEASUREMENTS: Right Kidney: 10.2 x 4.6 x 5.4 cm Left Kidney: 11.8 x 4.3 x 6.5 cm Post Void Residual Volume: 0 mL Right Kidney: No hydronephrosis or masses seen Left Kidney: 2.7cm inferior pole cyst Bladder: wnl Bilateral Jets seen: yes Normal Post Void Residual: YES IMPRESSION: 1. Left infrarenal cyst
== END | disposition home or self-care (01) ==
LOC: RADUSWWP 13:40
PROVIDERS: ATTEND Internal Medicine Geriatric Medicine
DX: N28.1 Cyst of kidney, acquired (principal)
CPT/HCPCS: 76770

== ENCOUNTER → 2020-02-19 | Outpatient (CLI) | payer MEDICAID | END | disposition home or self-care (01) | LOC: RADECHMAIN 11:46 | PROVIDERS: ATTEND Internal Medicine Geriatric Medicine | DX: Z53.9 Procedure and treatment not carried out, unspecified reason (principal) ==

== ENCOUNTER → 2020-02-26 | Outpatient (CLI) | payer MEDICAID ==
--- NOTE | 2020-02-27 16:00 | ECHOF ---
Referral Reason:R60.9 edema MEASUREMENTS -------- HEIGHT: 167.6 cm WEIGHT: 143.3 kg BP: IVSd: 1.4 cm (0.6 - 1.1) LVIDd: 4.9 cm (3.9 - 5.3) LVPWd: 1.4 cm (0.6 - 1.1) IVSs: 1.6 cm LVIDs: 3.4 cm LVPWs: 1.8 cm LA Diam: 3.2 cm (2.7 - 3.8) RVIDd: 3.2 cm (< 3.3) LAESV Index (A-L): 22.96 ml/m Ao Diam: 3.2 cm (2.0 - 3.7) AV Cusp: 2.1 cm (1.5 - 2.6) EPSS: 0.7 cm MV E Joseph: 0.90 m/s MV DecT: 259 ms MV A Joseph: 0.92 m/s MV E/A Ratio: 0.97 RAP: 5.00 mmHg RVSP: 22.55 mmHg MV EF SLOPE: 80.91 mm/s (70 - 150) MV EXCURSION: 19.09 mm (> 18.000) FINDINGS -------- Sinus rhythm. This was a technically adequate study. The left ventricular size is normal. There is moderate concentric left ventricular hypertrophy. O verall left ventricular systolic function is normal with, an EF between 60 - 65 %. The right ventricle is normal in size. Normal LA size by volume 22+/-6 ml/m2. The right atrium is normal in size. Interatrial and interventricular septum intact. The aortic valve is trileaflet and appears structurally normal. The mitral valve is normal. Mild tricuspid regurgitation present. Right ventricular systolic pressure is normal at < 35 mmHg. There is no pulmonic regurgitation present. The aortic root size is normal. Normal inferior vena cava with normal inspiratory collapse consistent with estimated right atrial pre ssure of 5 mmHg. There is no pericardial effusion. CONCLUSIONS -------- 1. Sinus rhythm. 2. This was a technically adequate study. 3. The left ventricular size is normal. 4. There is moderate concentric left ventricular hypertrophy. 5. Overall left ventricular systolic function is normal with, an EF between 60 - 65 %. 6. The right ventricle is normal in size. 7. Normal LA size by volume 22+/-6 ml/m2. 8. The right atrium is normal in size. 9. Interatrial and interventricular septum intact. 10. The aortic valve is trileaflet and appears structurally normal. 11. The mitral valve is normal. 12. Mild tricuspid regurgitation present. 13. Right ventricular systolic pressure is normal at < 35 mmHg. 14. There is no pulmonic regurgitation present. 15. The aortic root size is normal. 16. Normal inferior vena cava with normal inspiratory collapse consistent with estimated right atrial pressure of 5 mmHg. 17. There is no pericardial effusion. MACHINE BUILDER: Mireya Sims RDCS
== END | disposition home or self-care (01) ==
LOC: RADECHMAIN 13:13
PROVIDERS: ATTEND Nurse Practitioner Family
DX: I07.1 Rheumatic tricuspid insufficiency (principal)
CPT/HCPCS: 93306